=== PATIENT | female | born 1975 | race African-American/Black ===

== ENCOUNTER 2017-12-15 05:43 | Emergency (ER) | payer SELFPAY ==
[~2017-12-15] VITALS: Ht 162.6 cm; Wt 60.0 kg
[~2017-12-15 05:43] MED LIST: PENI500T PO
[2017-12-15 05:44] VITALS: BP 131/87; PULSE 104; RESP 18; TEMP 98; O2SAT 99
[2017-12-15] MEDS ORDERED: TETANUS/DIPHTHERIA TOXOID ADULT 0.5 ML VIAL IM ONE (06:30)
[2017-12-15] MEDS ORDERED: ceFAZolin 2 GM PREMIX 50 ML IV ONE (06:30)
[2017-12-15] MEDS ORDERED: LIDOCAINE 1%/EPINEPHrine 1:100,000 SOLN 20 ML VIAL INFIL ONE (06:30)
--- NOTE | 2017-12-15 06:32 | PD ---
HPI Chief Complaint: Laceration/Skin Injury Time Seen by Provider: 06:23 Travel History International Travel<30 days: No Contact w/Intl Traveler<30days: No Traveled to known affect area: No History of Present Illness HPI 42-year-old black female presents to emergency department for evaluation of a facial laceration as well as a right thumb laceration. She states approximately one hour ago she was attempting to open a window when the pain of glass fell and striking her face and cutting her right hand. The patient also sustained a large laceration to her left lower lip. She has not had a tetanus shot over 5 years. She denies any numbness, tingling or weakness. She does admit to drinking alcohol earlier. Pain is mild. Exacerbated by alcohol. No alleviating factor. PFSH Past Medical History Medical History: Denies Significant Hx Diminished Hearing: No Immunizations Current: Yes Tetanus Vaccination: > 5 Years ?: Not : 5 Para: 4 : 1 Past Surgical History Surgical History: No Previous Surgery Social History Alcohol Use: Yes (OCCASSIONALLY) Tobacco Use: Yes (1PPD) Substance Use: No (HX COCAINE) Allergies-Medications (Allergen,Severity, Reaction): Coded Allergies: No Known Allergies (Verified Adverse Reaction, Unknown, 12/15/17) Reported Meds & Prescriptions Reported Meds & Active Scripts Active Penicillin V Potassium 500 Mg Tab 500 Mg PO Q8H 10 Days Review of Systems Except as stated in HPI: all other systems reviewed are Neg Physical Exam Narrative GENERAL: Well-developed, well-nourished in no apparent distress. Nontoxic appearing. Patient smells of EtOH. HEAD: Patient has a very large laceration from the left cheek through the lip involving the vermilion border as well as the dry vermilion. Part of the laceration goes through and through into her gingiva area the laceration measures between 8-10 cm. EYES: Pupils equal round and reactive. Extraocular motions intact. No scleral icterus. No injection or drainage. ENT: Nose clear. Throat without erythema, tonsillar hypertrophy or exudate. Uvula midline. Airway patent. NECK: Trachea midline. Supple, nontender, moves head freely. No central bony tenderness or spasm. CARDIOVASCULAR: Regular rate and rhythm without murmurs, gallops, or rubs. RESPIRATORY: Clear to auscultation. Breath sounds equal bilaterally. No wheezes , rales, or rhonchi. GASTROINTESTINAL: Abdomen soft, non-tender, nondistended. No hepato-splenomegaly , or palpable masses. No guarding. EXTREMITIES: No clubbing, cyanosis, or edema. Examination of the right hand reveals a 1.2 cm laceration over the dorsal proximal right thumb. The laceration goes into subcutaneous tissues. She is able to fully extend and flex her thumb. It does not appear to go into the joint. She is able to move her finger with full strength. Wound will be evaluated for potential tendon injury. I do not believe once again that this goes into a joint. No foreign body identified. Remainder hand is unremarkable. The left hand is unremarkable. Lower extremities are unremarkable. BACK: Nontender without deformity. No flank tenderness. NEUROLOGICAL: Awake, alert and oriented x 3 .Cranial nerves grossly intact. Motor and sensory grossly within normal limits. Normal speech. Data Data Last Documented VS Vital Signs Date Time Temp Pulse Resp B/P (MAP) Pulse Ox O2 Delivery O2 Flow Rate FiO2 12/15/17 05:44 98.0 104 18 131/87 (102) 99 Orders Orders Lidocai-Epi 1%-1:100,000 Inj (Xylocaine- (12/15/17 06:30) Cefazolin 2 Gm Premix (Ancef 2 Gm Premix (12/15/17 06:30) Tetanus/Diphtheria Tox Adult (Tetanus/Di (12/15/17 06:30) Iv Access Insert/Monitor (12/15/17 06:23) Finger ([id number]) (12/15/17 06:23) MDM Medical Decision Making Medical Screen Exam Complete: Yes Emergency Medical Condition: Yes Medical Record Reviewed: Yes Differential Diagnosis MDM: High Differential diagnoses: Fracture, sprain, strain, dislocation, contusion, neurovascular injury Narrative Course Patient has a very large laceration to the left face. She also has a laceration involving the right thumb. IV access is obtained. She is given 2 g of Ancef IV. Tetanus immunization. We will obtain x-ray of her right thumb to rule out foreign body as well as air. The case will be signed out to Joan SMART. Condition: Stable Aj Almanzar Dec 15, 2017 06:32
--- NOTE | 2017-12-15 06:49 | RADRPT ---
EXAM DATE/TIME: 12/15/2017 06:31 [facility] COMPARISON: No previous studies available for comparison. INDICATIONS : Foreign body. Patients right hand went through window, laceration to right thumb. MEDICAL HISTORY : None. SURGICAL HISTORY : None. ENCOUNTER: Initial ACUITY: 1 day PAIN SCORE: 0/10 LOCATION: Right thumb FINDINGS: Examination of the first digit of the right hand demonstrates no evidence of fracture or dislocation. No radiopaque foreign bodies are seen. Soft tissue swelling.. CONCLUSION: 1. Soft tissue swelling without radiopaque foreign bodies. Todd Morgan MD on December 15, 2017 at 6:45 Board Certified Radiologist. This report was verified electronically.
--- NOTE | 2017-12-15 06:58 | PD ---
Physical Exam Time Seen by Provider: 06:57 Narrative Received report of changes shift from Aj francois PA-C. See his note for initial history and physical. I repaired the lacerations. Data Data Last Documented VS Vital Signs Date Time Temp Pulse Resp B/P (MAP) Pulse Ox O2 Delivery O2 Flow Rate FiO2 12/15/17 05:44 98.0 104 18 131/87 (102) 99 Orders Orders Lidocai-Epi 1%-1:100,000 Inj (Xylocaine- (12/15/17 06:30) Cefazolin 2 Gm Premix (Ancef 2 Gm Premix (12/15/17 06:30) Tetanus/Diphtheria Tox Adult (Tetanus/Di (12/15/17 06:30) Iv Access Insert/Monitor (12/15/17 06:23) Finger ([id number]) (12/15/17 06:23) Lidocai-Epi 1%-1:100,000 Inj (Xylocaine- (12/15/17 07:03) Morphine Inj (Morphine Inj) (12/15/17 07:30) Ondansetron Inj (Zofran Inj) (12/15/17 07:30) Lidocaine 1% Inj (Xylocaine 1% Inj) (12/15/17 07:47) Morphine Inj (Morphine Inj) (12/15/17 09:15) Ed Discharge Order (12/15/17 09:30) [facility] Supervised Visit with JONATHON: No Differential Diagnosis Laceration, contusion, abrasion, finger fracture Narrative Course I received report from Aj francois PA-C at change of shift. See his note for initial history and physical. See my note for laceration repair. Morphine and Zofran ordered. 0657: Examination of the first digit of the right hand demonstrates no evidence of fracture or dislocation. No radiopaque foreign bodies are seen. Soft tissue swelling. Bactrim, Lorton, ibuprofen prescribed for home. Instructed patient to return to the emergency department in 7 days for suture removal. Instructed patient to follow-up with plastic surgeon as needed. Instructed patient to follow up with primary care provider. Patient verbalizes understanding and agreement with treatment plan. Patient is medically cleared and stable for discharge. Discussed reasons to return to the emergency department. Patient agrees with treatment plan. The patients vital signs are stable and the patient is stable for outpatient follow-up and treatment. Patient discharged home, stable and in no acute distress. Procedures Procedure Narrative LACERATION LOCATION: Outer lower lip LENGTH: 6 cm NUMBER OF STITCHES/SUJATA: 19 simple interrupted sutures REPAIR: The area of the laceration was prepped with Betadine and sterilely draped. The laceration was infiltrated with 1% lidocaine. The wound was copiously irrigated and explored without evidence of foreign body, tendon injury or neurovascular injury. The wound was closed using 6-0 Prolene. This was a single layer repair. A sterile dressing was applied. The patient was advised to keep the dressing clean and dry. Patient tolerated the procedure well. LACERATION LOCATION: Inner lower lip LENGTH: 1.5 cm NUMBER OF STITCHES/SUJATA: 2 simple interrupted sutures REPAIR: The area of the laceration was prepped with normal saline and sterilely draped. The laceration was infiltrated with 1% lidocaine. The wound was copiously irrigated and explored without evidence of foreign body, tendon injury or neurovascular injury. The wound was closed using 4-0 Vicryl. This was a single layer repair. A sterile dressing was applied. The patient was advised to keep the dressing clean and dry. Patient tolerated the procedure well. LACERATION LOCATION: Dorsal aspect of right thumb in between the MCP and DIP joint LENGTH: 1.5 cm NUMBER OF STITCHES/SUJATA: 3 simple interrupted sutures REPAIR: The area of the laceration was prepped with Betadine and sterilely draped. The finger was digitally blocked with 1% lidocaine. The wound was copiously irrigated and explored without evidence of foreign body, tendon injury or neurovascular injury. The wound was closed using 4-0 Prolene. This was a single layer repair. A sterile dressing was applied. The patient was advised to keep the dressing clean and dry. Patient tolerated the procedure well. Diagnosis Primary Impression: Laceration of lower lip Qualified Codes: S01.511A - Laceration without foreign body of lip, initial encounter Additional Impression: Laceration of thumb, right Qualified Codes: S61.011A - Laceration without foreign body of right thumb without damage to nail, initial encounter Referrals: [facility] Dentist Plastic Surgeon Primary Care Physician Patient Instructions: Care For Your Stitches (ED), Facial Laceration (ED), Finger Laceration (ED), General Instructions Departure Forms: Tests/Procedures, Work Release Enter return to work date: Dec 18, 2017 Additional Instruction: Antibiotics as prescribed and complete full course Keep area clean and dry Limit right thumb activity to decrease risk of sutures coming undone done; use sling for support and to decrease activity Ibuprofen or Tylenol as directed and as needed for pain and inflammation Ice pack to area as needed to decrease pain Return to the emergency department in 7 days for suture removal Follow up with primary care provider within 2-4 days Return to the emergency department immediately with worsening of symptoms, particularly if reddened streaks up or down the affected extremity from the suture site, fever, numbness/tingling in the affected extremity, loss of sensation in the affected extremity, severe swelling of the affected Med/Other Pt SpecificInfo: Prescription(s) given Scripts Hydrocodone-Acetaminophen (Lorton) 5 Mg-325 Mg Tab 1 TAB PO Q4H Y for PAIN, #10 TAB 0 Refills Prov: Joan Webb 12/15/17 Ibuprofen (Ibuprofen) 800 Mg Tab 800 MG PO Q6HR Y for PAIN, #30 TAB 0 Refills Prov: Joan Webb 12/15/17 Sulfamethoxazole-Trimethoprim (Bactrim DS) 800-160 Mg Tab 1 TAB PO BID for Infection for 7 Days, #14 TAB 0 Refills Prov: Joan Webb 12/15/17 Disposition: 01 DISCHARGE HOME Condition: Stable Joan Webb Dec 15, 2017 06:58
[2017-12-15] MEDS ORDERED: LIDOCAINE 1%/EPINEPHrine 1:100,000 SOLN 30 ML VIAL ONE (07:03)
[2017-12-15] MEDS ORDERED: MORPHINE SULFATE 4 MG/ML INJ IV PUSH ONE ×2 (07:30→09:15)
[2017-12-15] MEDS ORDERED: ONDANSETRON HCL 4 MG/2 ML VIAL IV PUSH ONE (07:30)
[2017-12-15] MEDS ORDERED: LIDOCAINE HCL 1% 20 ML VIAL ONE (07:47)
[2017-12-15] MEDS ORDERED: IBUP1TAB7 PO (09:33)
[2017-12-15] MEDS ORDERED: NORC5TAB PO (09:33)
[2017-12-15] MEDS ORDERED: BACT800T5 PO (09:33)
[2017-12-15 10:35] VITALS: BP 135/69; PULSE 75; RESP 15; O2SAT 98
== END 2017-12-15 10:40 | disposition home or self-care (01) ==
LOC: NEPD 05:43
DX: S01.511A Laceration without foreign body of lip, initial encounter (principal); S61.011A Laceration without foreign body of right thumb without damage to nail, initial encounter; W25.XXXA Contact with sharp glass, initial encounter; Y93.89 Activity, other specified; Z23 Encounter for immunization
CPT/HCPCS: 12001; 12014; 73140; 90471; 90714; 96365; 96375; 96376; 99283; J0690; J2270; J2405

== ENCOUNTER 2017-12-22 14:28 | Emergency (ER) | payer SELFPAY ==
[~2017-12-22] VITALS: Ht 162.6 cm; Wt 70.5 kg
[~2017-12-22 14:28] MED LIST changes: +BACT800T5 PO; +IBUP1TAB7 PO; +NORC5TAB PO
[2017-12-22 14:57] VITALS: BP 136/67; PULSE 91; RESP 18; TEMP 98.8; O2SAT 98
--- NOTE | 2017-12-22 15:45 | PD ---
HPI Chief Complaint: Wound/Suture/Staple Re-Check Time Seen by Provider: 15:43 Travel History International Travel<30 days: No Contact w/Intl Traveler<30days: No Traveled to known affect area: No History of Present Illness HPI 42-year-old female presents for suture removal. She was seen here on December 15 for evaluation of facial laceration and laceration of the right thumb. She presents now for suture removal. She reports slight pain to her lower lip. Pain is mild and worse with palpation. Denies any fevers, chills, drainage. She reports that 1 of the sutures on the right thumb fell off. She has no other complaints at this time. [facility] Past Medical History Diminished Hearing: No Immunizations Current: Yes ?: Not LMP: first week of November : 5 Para: 4 : 1 Social History Alcohol Use: Yes (OCCASSIONALLY) Tobacco Use: Yes (1PPD) Substance Use: No (HX COCAINE) Allergies-Medications (Allergen,Severity, Reaction): Coded Allergies: No Known Allergies (Verified Adverse Reaction, Unknown, 12/15/17) Reported Meds & Prescriptions Reported Meds & Active Scripts Active Ibuprofen 800 Mg Tab 800 Mg PO Q6HR PRN Review of Systems Musculoskeletal: Positive: Pain Skin: Positive Other (Positive for lacerations) Physical Exam Narrative GENERAL: Well-developed well-nourished female no acute distress SKIN: Warm and dry. Well-healing laceration at the dorsal aspect of the right thumb, [address], no dehiscence or erythema. Large laceration to the lower lip and chin. Sutures in place. No dehiscence. Some scabbing. HEAD: Atraumatic. Normocephalic. EYES: Pupils equal and round. No scleral icterus. No injection or drainage. ENT: No nasal bleeding or discharge. Mucous membranes pink and moist. Skin as noted above in her lower lip laceration noted with 2 Vicryl sutures, some wound dehiscence noted. NECK: Trachea midline. No JVD. CARDIOVASCULAR: Regular rate and rhythm. No murmur appreciated. RESPIRATORY: No accessory muscle use. Clear to auscultation. Breath sounds equal bilaterally. Data Data Last Documented VS Vital Signs Date Time Temp Pulse Resp B/P (MAP) Pulse Ox O2 Delivery O2 Flow Rate FiO2 12/22/17 14:57 98.8 91 18 136/67 (90) 98 [facility] Medical Decision Making Medical Screen Exam Complete: Yes Emergency Medical Condition: Yes Medical Record Reviewed: Yes Differential Diagnosis Suture removal, wound dehiscence, infected wound Narrative Course Sutures were removed without incident. Diagnosis Primary Impression: Visit for suture removal Med/Other Pt SpecificInfo: Wound Care Disposition: 01 DISCHARGE HOME Condition: Stable Rogelio Beckford Dec 22, 2017 15:45
== END 2017-12-22 16:06 | disposition home or self-care (01) ==
LOC: NEPK 14:28
DX: Z48.02 Encounter for removal of sutures (principal)
CPT/HCPCS: 99281